=== PATIENT | female | born 1970 | race Caucasian/White ===

== ENCOUNTER 2024-01-04 11:31 | Emergency (ER) | payer OTHER ==
[2024-01-04 11:58] VITALS: BP 109/69; O2SAT 99
--- NOTE | 2024-01-04 12:11 | ED Physician Documentation ---
PD HPI OPHTHO - Stated complaint Stated Complaint: EYE IRRITATION - Chief complaint Chief Complaint: Heent - History obtained from History obtained from: Patient - Additional information Additional information: She presents with bilateral eye irritation for a month. She wears contacts but really has not been since this started. No history of this. Recently moved from [place]. PD PAST MEDICAL HISTORY - Past Medical History Past Medical History: No - Past Surgical History Past Surgical History: No - Present Medications Home Medications: Ambulatory Orders Medication Instructions Recorded Confirmed Ketotifen Fumarate [[place]away] 1 drops OP BID #10 ml 01/04/24 buPROPion HCL [Bupropion Xl] 450 mg PO DAILY 01/04/24 01/04/24 - Allergies Allergies/Adverse Reactions: Allergies Allergy/AdvReac Type Severity Reaction Status Date / Time No Known Drug Allergies Allergy Verified 01/04/24 11:56 - Social History Does the pt smoke?: No Smoking Status: Never smoker Does the pt drink ETOH?: Yes Does the pt have substance abuse?: No PD ED PE NORMAL - Vitals Vital signs reviewed: Yes - General General: Alert and oriented X 3, No acute distress - HEENT HEENT: PERRL, EOMI, Other (Bilateral mild bloodshot conjunctivitis, soft globes) - Neuro Neuro: Alert and oriented X 3 Results - Vitals Vitals: Vital Signs - 24 hr 01/04/24 11:51 Temperature 36.0 C L Heart Rate 78 Respiratory 14 Rate Blood Pressure 109/69 O2 Saturation 99 Oxygen O2 Source Room air PD Medical Decision Making - ED course ED course: Given time course and physical exam findings discussed with her that this is likely related to allergic conjunctivitis. She is new to the area. Departure - Departure Disposition: 01 Home, Self Care Clinical Impression: Allergic conjunctivitis Qualifiers: Laterality: bilateral Qualified Code(s): H10.13 - Acute atopic conjunctivitis, bilateral Condition: Good Record reviewed to determine appropriate education?: Yes Instructions: ED Allergic Conjunctivitis Follow-Up: Simone Mayfield MD [Provider Admit Priv/Credential] - Prescriptions: Ketotifen Fumarate [Alaway] 1 drops OP BID #10 ml Comments: I sent the prescription electronically to To. As discussed, the physical exam findings and time course would suggest this this is an allergic process. I suspect she will find the eyedrops to be very ef fective. Regardless I do want you to follow-up with the tube sizer and cutter operator. Return for new or worsening symptoms.
== END 2024-01-04 12:13 | disposition home or self-care (01) ==
LOC: ED 11:31
DX: H10.13 Acute atopic conjunctivitis, bilateral (principal); Z79.899 Other long term (current) drug therapy
CPT/HCPCS: 99282; 99283